=== PATIENT | female | born 1995 | race Caucasian/White ===

== ENCOUNTER 2020-07-10 12:34 | Outpatient (REF) | payer OTHER, SELFPAY | END 2020-07-10 12:35 | disposition home or self-care (01) | LOC: HO.WFDLDS 12:34 | PROVIDERS: Visit Provider Internal Medicine | DX: Z20.828 Contact with and (suspected) exposure to other viral communicable diseases (principal) | CPT/HCPCS: C9803; U0003 ==

== ENCOUNTER → 2023-01-28 14:22 | Outpatient (BNVA) | payer OTHER, SELFPAY | PROVIDERS: Visit Provider Internal Medicine | DX: S80.02XA Contusion of left knee, initial encounter (principal); W51.XXXA Accidental striking against or bumped into by another person, initial encounter | CPT/HCPCS: 99202 ==